=== PATIENT | female | born 1955 ===

== ENCOUNTER 2018-03-22 09:32 | Emergency (ER) | payer BC, OTHER ==
[2018-03-22 09:43] VITALS: BP 134/82
--- NOTE | 2018-03-22 10:59 | UC ---
Eye Complaint HPI - HPI Summary HPI Summary: 62 yo c/o R itchy watery eye since last evening. Thinks got something in eye yesterday while gardening, wiped it out. No pain. No vis changes reported except watery eyes. No lid pain or swelling . - History of Current Complaint Chief Complaint: UCEye Stated Complaint: EYE COMPLAINT Time Seen by Provider: 03/22/18 10:57 Hx Obtained From: Patient Pain Intensity: 2 - Allergies/Home Medications Allergies/Adverse Reactions: Allergies Allergy/AdvReac Type Severity Reaction Status Date / Time No Known Allergies Allergy Verified 03/22/18 09:43 Home Medications: Home Medications Aspirin 81 mg CHEW TAB* 81 mg PO DAILY 03/22/18 [History Confirmed 03/22/18] PARoxetine HCl [Paroxetine Cr] 1 tab PO DAILY 03/22/18 [History Confirmed ] PMH/Surg Hx/FS Hx/Imm Hx Previously Healthy: Yes - Surgical History Surgical History: Yes Surgery Procedure, Year, and Place: trigger finger,double ureter,wisdom teeth - Social History Alcohol Use: Occasionally Substance Use Type: None Smoking Status (MU): Never Smoked Tobacco Review of Systems All Other Systems Reviewed And Are Negative: Yes Constitutional: Positive: Negative Skin: Positive: Negative Eyes: Positive: Other - see hpi ENT: Positive: Negative Respiratory: Positive: Negative Cardiovascular: Positive: Negative Gastrointestinal: Positive: Negative Genitourinary: Positive: Negative Motor: Positive: Negative Neurovascular: Positive: Negative Musculoskeletal: Positive: Negative Neurological: Positive: Negative Psychological: Positive: Negative Is Patient Immunocompromised?: No Physical Exam Triage Information Reviewed: Yes Appearance: Well-Appearing, Well-Nourished Vital Signs: Initial Vital Signs Temp 98 F 03/22/18 09:37 Pulse 70 03/22/18 09:37 Resp 16 03/22/18 09:37 BP 134/82 03/22/18 09:37 Pulse Ox 100 03/22/18 09:37 Vital Signs Reviewed: Yes Eye Exam: Other - see course ENT Exam: Normal Neck exam: Normal - grossly normal Respiratory Exam: Normal - no dyspnea, no tachypnea, rr normal Cardiovascular Exam: Normal - hr normal, nondiaphoretic Abdominal Exam: Normal - no c/o Musculoskeletal Exam: Normal - grossly nad Neurological Exam: Normal - grossly nonfocal Psychological Exam: Normal - nad Skin Exam: Normal - nad Eye Complaint Course/Dx - Course Course Of Treatment: Fluor stain - + abrasion corneal, mid inf location, irregular ovoid shape approx 2mmL x 4mm w. No fb noted. Lids flipped, no fb noted. + watery eyes bilat. + injected sclera Right. Small yellow-white d/c right eye. 11:40 - rx changed to ofloxacin (cipro eye drops n/a per pharmacist) . Prior to departure, reviewed coa / tx plan. Questions as posed answered to the best of my ability. - Differential Dx/Diagnosis Provider Diagnoses: Corneal abrasion R eye. superimposed over dry eyes Discharge - Sign-Out/Discharge Documenting (check all that apply): Patient Departure All imaging exams completed and their final reports reviewed: No Studies - Discharge Plan Condition: Stable Disposition: HOME Prescriptions: Ofloxacin 0.3% (Eye Drop) [Ocuflox OPTH 0.3% (Eye Drop)] 2 drop RIGHT EYE Q6H # 1 btl Olopatadine 0.1% OPHTH (NF) [Patanol 0.1% OPHTH (NF)] 0.1 % OP BID #1 bottle Patient Education Materials: Corneal Abrasion (ED) Referrals: Umair Flores MD [Medical Doctor] - Kim Obregon MD [Primary Care Provider] - Additional Instructions: Please seek medical attention for worse or new problems. Follow up with your eye doctor if worse. Schedule routine appointment for eye check when able. - Billing Disposition and Condition Condition: STABLE Disposition: Home
[2018-03-22] MEDS ORDERED: Fluorescein Sodium TOPICAL* 1 MG TEST STRIP OPHTHALMIC ONE (11:11)
[2018-03-22] MEDS ORDERED: Tetracaine 0.5% OPTH.SOL 4 ML* 1 DROP BTL RIGHT EYE ONE (11:12)
== END 2018-03-22 11:33 | disposition home or self-care (01) ==
LOC: UCEAST 09:32
DX: S05.01XA Injury of conjunctiva and corneal abrasion without foreign body, right eye, initial encounter (principal); H57.89 Other specified disorders of eye and adnexa; Z79.82 Long term (current) use of aspirin
CPT/HCPCS: 99202; A9270-GY; G0463